=== PATIENT | male | born 1975 | race Caucasian/White ===

== ENCOUNTER 2016-09-13 22:19 | Emergency (ER) | payer SELFPAY ==
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
[2016-09-13] MEDS ORDERED: KETOROLAC TROMETHAMINE 60 MG/2 ML VIAL IM ONE ×2 (23:46)
[2016-09-14] VITALS: BP 122/74
== END 2016-09-13 23:57 | disposition home or self-care (01) ==
LOC: ER 22:19
DX: R07.89 Other chest pain (principal); F17.210 Nicotine dependence, cigarettes, uncomplicated; W20.8XXA Other cause of strike by thrown, projected or falling object, initial encounter